=== PATIENT | female | born 1990 | race Caucasian/White ===

== ENCOUNTER 2017-03-27 19:08 | Emergency (ER) | payer OTHER ==
[2017-03-27 19:53] LABS: BASO % 0.3 % (0.1-1.2); EOS # 0.1 10_X3_uL (0.0-0.4); EOS % 1.4 % (0.7-5.8); GRAN # 5.3 10_X3_uL (1.6-6.1); GRAN % 61.6 % (34.0-71.1); HEMATOCRIT 39.9 % (34-45); HEMOGLOBIN 13.9 g/dL (11.2-15.7); LYMPH # 2.7 10_X3_uL (1.2-3.7); LYMPH % 31.1 % (19.3-51.7); MEAN CORPUSCULAR HEMOGLOBIN 30.3 pg (27.0-33.0); MEAN CORPUSCULAR HGB CONC 34.8 g/dL (32.0-36.0); MEAN CORPUSCULAR VOLUME 87.1 fL (79-95); MEAN PLATELET VOLUME 10.3 fl (7.5-11.5); MONO # 0.5 10_X3_uL (0.2-0.9); MONO % 5.6 % (4.7-12.5); PLATELET COUNT 247 x10_3/uL (182-369); RED BLOOD COUNT 4.58 x10_6/uL (3.9-5.2); RED CELL DISTRIBUTION WIDTH 13.5 % (11.7-14.4); WHITE BLOOD COUNT 8.6 x10_3/uL (4.0-10.0)
[2017-03-27 20:12] LABS: ALBUMIN 3.9 gm/dL (3.4-5.0); ALKALINE PHOSPHATASE 85 U/L (50-136); ALT/SGPT 10 U/L (3.5-33.9); AST/SGOT 15 U/L (7.04-26.96); BLOOD UREA NITROGEN 8 mg/dL (7-18); CALCIUM 8.9 mg/dL (8.7-10.7); CARBON DIOXIDE 25 mmol/L (21-32); CREATININE < 0.5 mg/dL (0.6-1.3); GLUCOSE,RANDOM 92 mg/dL (70-99); POTASSIUM 4.2 mmol/L (3.5-5.1); SODIUM 139 mmol/L (136-145); TOTAL PROTEIN 7.1 gm/dL (6.4-8.2)
[2017-03-27 20:17] LABS: BILIRUBIN,TOTAL < 0.15 mg/dL (0.0-1.0)
== END 2017-03-27 23:51 | disposition home or self-care (01) ==
LOC: ER 19:08
PROVIDERS: Emergency Medicine
DX: L02.413 Cutaneous abscess of right upper limb (principal); F19.10 Other psychoactive substance abuse, uncomplicated
CPT/HCPCS: 10060; 36415; 80053; 85025; 87040; 96365; 99070; 99283-25

== ENCOUNTER 2017-03-30 14:14 | Emergency (ER) | payer OTHER | END 2017-03-30 14:55 | disposition home or self-care (01) | LOC: ER 14:14 | DX: Z48.817 Encounter for surgical aftercare following surgery on the skin and subcutaneous tissue (principal) | CPT/HCPCS: 99070; 99282 ==

== ENCOUNTER 2017-04-01 15:29 | Emergency (ER) | payer OTHER | END 2017-04-01 16:13 | disposition home or self-care (01) | LOC: ER 15:29 | DX: Z48.817 Encounter for surgical aftercare following surgery on the skin and subcutaneous tissue (principal); L02.413 Cutaneous abscess of right upper limb; F17.210 Nicotine dependence, cigarettes, uncomplicated | CPT/HCPCS: 99070; 99282 ==

== ENCOUNTER 2017-04-04 16:34 | Emergency (ER) | payer OTHER | END 2017-04-04 17:48 | disposition home or self-care (01) | LOC: ER 16:34 | DX: I96 Gangrene, not elsewhere classified (principal); L03.113 Cellulitis of right upper limb; S80.02XA Contusion of left knee, initial encounter; S80.212A Abrasion, left knee, initial encounter; W19.XXXA Unspecified fall, initial encounter | CPT/HCPCS: 73564; 90471; 90715; 99070; 99283-25 ==